=== PATIENT | female | born 1995 | race Caucasian/White ===

== ENCOUNTER 2017-02-15 00:35 | Emergency (ER) | payer OTHER ==
[2017-02-15 00:43] VITALS: BP 150/81; PULSE 52; RESP 16; TEMP 97.6
[2017-02-15] MEDS ORDERED: CHLORPHEN-HYDROcod 8-10mg/5ml 5 ML ORAL.SYRG PO STA (00:55)
--- NOTE | 2017-02-15 01:15 | XR ---
EXAMINATION TYPE: XR chest 2V DATE OF EXAM: 02/15/2017 COMPARISON: NONE HISTORY: Cough and chest pain TECHNIQUE: Frontal and lateral views of the chest are obtained. FINDINGS: Heart and mediastinum are normal. Lungs are clear. Diaphragm is normal. Bony thorax appear s normal. IMPRESSION: Normal chest
--- NOTE | 2017-02-15 01:30 | ED ---
URI HPI - General Chief Complaint: Upper Respiratory Infection Stated Complaint: Cough/Diarrhea/Congestion Time Seen by Provider: 02/15/17 00:44 Source: patient, RN notes reviewed Mode of arrival: ambulatory Limitations: no limitations - History of Present Illness Initial Comments: This a 21-year-old female presents emergency Department chief complaint of pharyngitis sore throat congestion cough. Patient's primary symptoms or cough at this time. She states that she's had on-and-off symptoms for last month and will months she was feeling better but recently started having the symptoms she states that she's been febrile in last 2 days. She is concerned about possible influenza. Patient states her cough is dry and nonproductive. Patient states that she's had family members diagnosed with acute bronchitis. Patient is a nonsmoker has no history of asthma. Patient denies any vomiting she does have some intermittent nausea and heartburn symptoms she states she did not particularly for heartburn. She also states that she's had couple episodes of diarrhea denies any current abdominal pain no rashes. Denies any chance . - Related Data Home Medications Medication Instructions Recorded Confirmed Levothyroxine Sodium [Synthroid] 100 mcg PO DAILY 08/10/15 08/10/15 Polyethylene Glycol 3350 [Miralax] 17 gm PO DAILY PRN 08/10/15 08/10/15 Previous Rx's Medication Instructions Recorded Doxycycline [Vibramycin] 100 mg PO Q12HR 14 Days capsule 08/10/15 Omeprazole 40 mg PO DAILY #14 capsule. 02/15/17 Promethaz-Cod 6.25-10 mg/5 ml 5 ml PO Q6HR PRN #120 ml 02/15/17 [Phenergan with Codeine] predniSONE 50 mg PO DAILY #5 tab 02/15/17 Allergies Allergy/AdvReac Type Severity Reaction Status Date / Time azithromycin Allergy Abdominal Verified 02/15/17 00:43 [From Zithromax Z-Rios] Pain Review of Systems ROS Statement: Those systems with pertinent positive or pertinent negative responses have been documented in the HPI. ROS Other: All systems not noted in ROS Statement are negative. Past Medical History Past Medical History: Thyroid Disorder History of Any Multi-Drug Resistant Organisms: None Reported Past Surgical History: No Surgical Hx Reported Past Psychological History: Depression Smoking Status: Never smoker Past Alcohol Use History: None Reported Past Drug Use History: None Reported General Exam Limitations: no limitations General appearance: alert, in no apparent distress Head exam: Present: atraumatic, normocephalic, normal inspection Eye exam: Present: normal appearance, PERRL, EOMI. Absent: scleral icterus, conjunctival injection, periorbital swelling ENT exam: Present: normal exam, normal oropharynx, mucous membranes moist, TM's normal bilaterally, normal external ear exam Neck exam: Present: normal inspection, full ROM. Absent: tenderness, meningismus, lymphadenopathy Respiratory exam: Present: normal lung sounds bilaterally. Absent: respiratory distress, wheezes, rales, rhonchi, stridor Cardiovascular Exam: Present: regular rate, normal rhythm, normal heart sounds. Absent: systolic murmur, diastolic murmur, rubs, gallop, clicks Skin exam: Present: warm, dry, intact, normal color. Absent: rash Course Vital Signs 02/15/17 00:39 Temperature 97.6 F Pulse Rate 52 L Respiratory 16 Rate Blood Pressure 150/81 O2 Sat by Pulse 98 Oximetry Medical Decision Making - Medical Decision Making 21-year-old female presents emergency Department chief complaint cough congestion worse moist. Patient does have acute bronchitis chest x-ray shows no evidence of pneumonia. Patient be prescribed steroids. Patient given cough syrup go home with. We discussed possibilities of her GERD causing a cough and laryngitis she'll be started on omeprazole. Patient will follow-up with PCP for recheck and return parameters were discussed. - Lab Data Lab Results 02/15/17 Range/Units 01:01 Influenza Type A RNA Not Detected (Not Detectd) Influenza Type B (PCR) Not Detected (Not Detectd) Disposition Clinical Impression: Acute bronchitis, Laryngitis, GERD (gastroesophageal reflux disease) Disposition: HOME SELF-CARE Condition: Stable Instructions: Acute Bronchitis (ED) Additional Instructions: Please return to the Emergency Department if symptoms worsen or any other concerns. Prescriptions: Omeprazole 40 mg PO DAILY #14 capsule. predniSONE 50 mg PO DAILY #5 tab Promethaz-Cod 6.25-10 mg/5 ml [Phenergan with Codeine] 5 ml PO Q6HR PRN #120 ml PRN Reason: Cough Referrals: Mary Galeana MD [Primary Care Provider] - 1-2 days Time of Disposition: 01:29
== END 2017-02-15 01:50 | disposition home or self-care (01) ==
LOC: EC 00:35
DX: J20.9 Acute bronchitis, unspecified (principal); J04.0 Acute laryngitis; K21.9 Gastro-esophageal reflux disease without esophagitis; E07.9 Disorder of thyroid, unspecified; Z79.899 Other long term (current) drug therapy; Z88.1 Allergy status to other antibiotic agents
CPT/HCPCS: 71046; 87502; 99284

== ENCOUNTER 2018-06-15 22:26 | Emergency (ER) | payer OTHER ==
[2018-06-15 22:49] VITALS: BP 114/83; PULSE 78; TEMP 98
[2018-06-15 23:32] LABS: Amorphous Sediment,Urine Rare /hpf; Appearance,Urine Clear (Clear); Bacteria,Urine Rare /hpf; Bilirubin,Urine Negative (Negative); Blood,Urine Moderate (Negative); Color,Urine Yellow; Glucose,Urine (UA) Negative (Negative); Ketones,Urine Negative (Negative); Leukocyte Esterase,Urine Negative (Negative); Mucus,Urine Few /hpf; Nitrite,Urine Negative (Negative); PH, Urine 5.5 (5.0-8.0); Protein,Urine Trace (Negative); RBC,Urine 157 /hpf (0-5); Specific Gravity,Urine 1.037 (1.001-1.035); Squamous Epithelial Cell,Urine 1 /hpf (0-4)
--- NOTE | 2018-06-16 01:19 | ED ---
Female Urogenital HPI - General Chief complaint: Vaginal Bleeding Stated complaint: Vaginal bleeding Time Seen by Provider: 06/16/18 00:23 Source: patient Mode of arrival: ambulatory Limitations: no limitations - History of Present Illness Initial comments: Patient is 23-year-old woman who presents with complaint that she is having worsening. Cramping and bleeding. She states that tonight she has had to go through a couple of tampons within the past hour. She states she is passing clots that are coarse eyes. Patient denies fever or chills. No vomiting. No change in urination. MD Complaint: vaginal bleeding, pelvic pain Onset/Timin -: days(s) Location: suprapubic Radiation: non-radiating Severity: moderate Quality: cramping Consistency: constant Improves with: none Worsens with: none Last Menstrual Period: 06/13/18 - Related Data Home Medications Medication Instructions Recorded Confirmed Levothyroxine Sodium [Synthroid] 100 mcg PO DAILY 08/10/15 03/11/17 Polyethylene Glycol 3350 [Miralax] 17 gm PO DAILY PRN 08/10/15 03/11/17 Previous Rx's Medication Instructions Recorded Doxycycline [Vibramycin] 100 mg PO Q12HR 14 Days capsule 08/10/15 Omeprazole 40 mg PO DAILY #14 capsule. 02/15/17 Promethaz-Cod 6.25-10 mg/5 ml 5 ml PO Q6HR PRN #120 ml 02/15/17 [Phenergan with Codeine] predniSONE 50 mg PO DAILY #5 tab 02/15/17 Albuterol Inhaler [Ventolin Hfa 1 - 2 puff INHALATION Q6HR PRN #1 03/11/17 Inhaler] inhaler Levofloxacin [Levaquin] 750 mg PO DAILY 3 Days #5 tab 03/11/17 Promethaz-Cod 6.25-10 mg/5 ml 5 ml PO Q6HR PRN #120 ml 03/11/17 [Phenergan with Codeine] predniSONE 20 mg PO BID #10 tab 03/11/17 Allergies Allergy/AdvReac Type Severity Reaction Status Date / Time azithromycin Allergy Abdominal Verified 06/15/18 22:49 [From Zithromax Z-Rios] Pain thyroid, pork AdvReac Rash/Hives Verified 06/15/18 22:49 [From [place] Thyroid] Review of Systems ROS Statement: Those systems with pertinent positive or pertinent negative responses have been documented in the HPI. ROS Other: All systems not noted in ROS Statement are negative. Constitutional: Denies: fever, chills Respiratory: Denies: cough, dyspnea Cardiovascular: Denies: chest pain, palpitations, edema Gastrointestinal: Reports: abdominal pain. Denies: nausea, vomiting, diarrhea, constipation Genitourinary: Reports: abnormal menses. Denies: discharge Musculoskeletal: Denies: back pain Skin: Denies: rash Neurological: Denies: headache, weakness, numbness Past Medical History Past Medical History: Thyroid Disorder History of Any Multi-Drug Resistant Organisms: None Reported Past Surgical History: No Surgical Hx Reported Past Psychological History: Depression Smoking Status: Never smoker Past Alcohol Use History: None Reported Past Drug Use History: None Reported General Exam Limitations: no limitations General appearance: alert, in no apparent distress Head exam: Present: atraumatic, normocephalic Eye exam: Present: normal appearance. Absent: scleral icterus, conjunctival injection Respiratory exam: Present: normal lung sounds bilaterally. Absent: respiratory distress, wheezes, rales, rhonchi, stridor Cardiovascular Exam: Present: regular rate, normal rhythm, normal heart sounds. Absent: systolic murmur, diastolic murmur, rubs, gallop GI/Abdominal exam: Present: soft. Absent: distended, tenderness, guarding, rebound, rigid, mass External exam: Present: other (Patient declines exam here) Extremities exam: Present: normal inspection, normal capillary refill. Absent: pedal edema Back exam: Present: normal inspection. Absent: CVA tenderness (R), CVA tenderness (L) Neurological exam: Present: alert Course Vital Signs 06/15/18 06/16/18 22:45 01:26 Temperature 98.0 F Pulse Rate 78 Respiratory 18 19 Rate Blood Pressure 114/83 O2 Sat by Pulse 98 Oximetry Medical Decision Making - Medical Decision Making Patient is 23-year-old woman having symptoms of dysmenorrhea. The physical exam is benign. She declines gynecologic exam stating she will follow with her nail setter for this. - Lab Data Lab Results 06/15/18 06/15/18 Range/Units 22:48 22:48 Urine Color Yellow Urine Appearance Clear (Clear) Urine pH 5.5 (5.0-8.0) Ur Specific [place] 1.037 H (1.001-1.035) Urine Protein Trace H (Negative) Urine Glucose (UA) Negative (Negative) Urine Ketones Negative (Negative) Urine Blood Moderate H (Negative) Urine Nitrite Negative (Negative) Urine Bilirubin Negative (Negative) Urine Urobilinogen 2.0 (<2.0) mg/dL Ur Leukocyte Esterase Negative (Negative) Urine RBC 157 H (0-5) /hpf Urine WBC 1 (0-5) /hpf Ur Squamous Epith Cells 1 (0-4) /hpf Amorphous Sediment Rare H (None) /hpf Urine Bacteria Rare H (None) /hpf Urine Mucus Few H (None) /hpf Urine HCG, Qual Not Detected (Not Detectd) Disposition Clinical Impression: Dysmenorrhea Disposition: HOME SELF-CARE Condition: Good Instructions (If sedation given, give patient instructions): Dysmenorrhea (ED) Is patient prescribed a controlled substance at d/c from ED?: No Referrals: Mary Galeana MD [Primary Care Provider] - 1-2 days Rozina Patel DO [Doctor of Osteopathic Medicine] - 1-2 days
[2018-06-16 01:37] VITALS: RESP 19
== END 2018-06-16 01:28 | disposition home or self-care (01) ==
LOC: EC 22:26
DX: N94.6 Dysmenorrhea, unspecified (principal); N93.9 Abnormal uterine and vaginal bleeding, unspecified; E07.9 Disorder of thyroid, unspecified; Z32.02 Encounter for pregnancy test, result negative; Z79.890 Hormone replacement therapy; Z88.1 Allergy status to other antibiotic agents; Z88.8 Allergy status to other drugs, medicaments and biological substances
CPT/HCPCS: 81001; 81025; 99284

== ENCOUNTER → 2018-10-21 | Outpatient (CLI) | payer OTHER ==
--- NOTE | 2018-10-21 14:51 | US ---
EXAMINATION TYPE: US pelvic complete DATE OF EXAM: 10/21/2018 COMPARISON: US 2016 CLINICAL HISTORY: N92.1Excessive and frequent menstruation with irre. Heavy painful periods x 1 year, 0 TECHNIQUE: . Transabdominal sonographic images of the pelvis were acquired. Transvaginal sonographi c images were medically necessary to better assess the following anatomy: ovaries Date of LMP: 10/04/2018 EXAM MEASUREMENTS: Uterus: 9.6 x 4.2 x 5.6 cm Endometrial Stripe: 0.9 cm Right Ovary: 3.6 x 2.5 x 2.3 cm Left Ovary: 2.7 x 1.6 x 2.9 cm 1. Uterus: anteverted, mildly heterogeneous 2. Endometrium: measures wnl for patient's LMP 3. Right Ovary: multiple follicles, 1.8 x 1.0 x 1.5cm simple appearing cyst/dominant follicle. 4. Left Ovary: multiple follicles 5. Bilateral Adnexa: wnl 6. Posterior cul-de-sac: wnl IMPRESSION: Dominant follicle versus small cyst appears simple and likely physiologic within the righ t ovary. Endometrial thickness is within normal limits.
== END | disposition home or self-care (01) ==
LOC: RADUSWWP 13:26
PROVIDERS: ATTEND Family Medicine
DX: N92.1 Excessive and frequent menstruation with irregular cycle (principal)
CPT/HCPCS: 76830; 76856

== ENCOUNTER → 2019-10-21 | Outpatient (CLI) | payer OTHER ==
[2019-10-21 15:46] LABS: Basophils % (A) 1 %; Eosinophils # (A) 0.1 k/uL (0-0.7); Eosinophils % (A) 1 %; HCT 44.4 % (34.0-46.0); HGB 14.4 gm/dL (11.4-16.0); Lymphocytes # (A) 1.9 k/uL (1.0-4.8); Lymphocytes % (A) 20 %; MCH 29.6 pg (25.0-35.0); MCHC 32.5 g/dL (31.0-37.0); MCV 91.1 fL (80.0-100.0); Mean Platelet Volume 7.3; Monocytes # (A) 0.5 k/uL (0-1.0); Monocytes % (A) 5 %; Neutrophils # (A) 6.9 k/uL (1.3-7.7); Neutrophils % (A) 73 %; Platelet Count 294 k/uL (150-450); RBC 4.87 m/uL (3.80-5.40); RDW 12.5 % (11.5-15.5); WBC 9.4 k/uL (3.8-10.6)
[2019-10-21 23:50] LABS: African American GFR (CKD) 117.9 (60.0-200.0); Albumin 4.4 g/dL (3.80-4.90); Albumin/Globulin Ratio 2.2 (1.60-3.17); Anion Gap 8.2 mmol/L (4.00-12.00); BUN/Creat Ratio 12.5 Ratio (12.00-20.00); Calcium 9.4 mg/dL (8.7-10.3); Carbon Dioxide 23.8 mmol/L (21.6-31.8); Non-African American GFR(CKD) 101.8 (60.0-200.0); Potassium 4.3 mmol/L (3.5-5.5); Total Bilirubin 0.4 mg/dL (0.2-1.2); Total Protein 6.4 g/dL (6.2-8.2)
[2019-10-22 07:20] LABS: Gliadin AB IgA, Deaminated NEGATIVE (NEGATIVE); Gliadin AB IgA, Unit <0.2 U/mL; Gliadin AB IgG, Deaminated NEGATIVE (NEGATIVE)
== END | disposition home or self-care (01) ==
LOC: LABWHC1 14:56
PROVIDERS: ATTEND Nurse Practitioner
DX: R19.4 Change in bowel habit (principal)
CPT/HCPCS: 36415; 80053; 83516; 85025

== ENCOUNTER → 2020-04-12 | Outpatient (CLI) | payer OTHER | END | disposition home or self-care (01) | LOC: LABWHC1 14:00 | PROVIDERS: ATTEND Obstetrics & Gynecology | DX: Z34.81 Encounter for supervision of other normal pregnancy, first trimester (principal); Z3A.00 Weeks of gestation of pregnancy not specified | CPT/HCPCS: 36415; 84702 ==

== ENCOUNTER → 2020-04-19 | Outpatient (CLI) | payer OTHER ==
[2020-04-20 00:03] LABS: T4, Free (Free Thyroxine) 1.4 ng/dL (0.80-1.80)
== END | disposition home or self-care (01) ==
LOC: LABWHC1 12:05
PROVIDERS: ATTEND Internal Medicine
DX: E03.9 Hypothyroidism, unspecified (principal)
CPT/HCPCS: 36415; 84439; 84443

== ENCOUNTER 2020-09-02 00:55 | Outpatient (CLI) | payer OTHER ==
[2020-09-02 02:05] VITALS: BP 131/86; PULSE 92; RESP 18; TEMP 98.6
--- NOTE | 2020-09-02 12:07 | P.MSEPDOC ---
Presenting Problems - Arrival Data Date of Arrival on Unit: 09/02/20 Time of Arrival on Unit: 00:55 Mode of Transport: Ambulatory - Complaint OB-Reason for Admission/Chief Complaint: Vaginal Bleeding Medical History - Information : 1 Para: 0 Term: 0 : 0 Abortions: Spontaneous or Elective: 0 Number of Living Children: 0 - Gestational Age Gestational Age by JOSEPHINE (wks/days): 26 Weeks and 1 Days Review of Systems - Review of Systems Constitutional: No problems Breast: No problems ENT: No problems Cardiovascular: No problems Respiratory: No problems Gastrointestinal: No problems Genitourinary: No problems Musculoskeletal: No problems Neurological: No problems Skin: No problems Vital Signs - Temperature Temperature: 98.6 F Temperature Source: Temporal Artery Scan - Pulse Right Pulse Rate: 92 Pulse Assessment Method: Automatic Cuff - Respirations Respiratory Rate: 18 Oxygen Delivery Method: Room Air O2 Sat by Pulse Oximetry: 98 - Blood Pressure Right Arm Blood Pressure: 131/86 Blood Pressure Mean: 101 Blood Pressure Source: Automatic Cuff Medical Screen Scoring - Cervical Exam Dilation (cm): 0 Membranes: Intact - Uterine Contractions Intensity: Absent Resting: Soft to palpation - Assessment - Baby A Baseline FHR: 140 Heart Rate - NICHD Category: Category I (Normal) Physician Notification - Physician Notified Physician Notified Date: 09/02/20 Physician Notified Time: 01:18 Physician: Rozina Patel Order Received: Yes - Notification Comment Comment: RN called Dr. Patel regarding patient's status. Speculum exam performed, no. signs of active bleeding noted, luis area appears to be WNL and no signs of bleeding. Pt. denies any history of hemmoroids. No complaints of contractions. Pt does state that she. has been constipated for 4-5 days and was only able to pass a small amt of stool today. Pt states she was straining pretty hard when trying to have a BM. Per Dr. Patel, RN is to. check cervix. If pt's cervix is closed, she may DC home with her previously scheduled OBGYN. visit. Pt to drink plenty of fluids, eat a high fiber diet, and may take a stool. softener PRN. Maternal Triage Index - Stat/Priority 1 Stat Priority 1: No - Urgent/Priority 2 Urgent Priority 2: No - Prompt/Priority 3 Prompt Priority 3: No - Non-Urgent/Priority 4 Non-Urgent Priority 4: Yes Criteria Met for Priority 4: Spotting when wiping after going to the bathroom. Disposition - Disposition OB Disposition: Discharge to home Discharge Date: 09/02/20 Discharge Time: 01:35 I agree with the RN Medical Screening Exam: Yes Case reviewed; plan agreed upon as documented in EMR&OBIX.: Yes Diagnosis: SPOTTING COMPLICATING , SECOND TRIMESTER Additional Diagnoses: Constipation
== END 2020-09-02 01:35 | disposition home or self-care (01) ==
LOC: FBPOP 00:55
PROVIDERS: ATTEND Obstetrics & Gynecology
DX: O26.852 Spotting complicating pregnancy, second trimester (principal); Z3A.26 26 weeks gestation of pregnancy
CPT/HCPCS: 99213

== ENCOUNTER → 2021-03-02 | Outpatient (CLI) | payer OTHER ==
[2021-03-03 01:22] LABS: T4, Free (Free Thyroxine) 1.6 ng/dL (0.800-1.800)
== END | disposition home or self-care (01) ==
LOC: LABWHC1 13:48
PROVIDERS: ATTEND Internal Medicine
DX: E03.9 Hypothyroidism, unspecified (principal)
CPT/HCPCS: 36415; 84439; 84443

== ENCOUNTER → 2021-03-13 | Outpatient (CLI) | payer OTHER ==
[2021-03-13 11:57] LABS: Glucose 2 Hour 76 mg/dL
== END ==
LOC: LABWHC1 08:27
PROVIDERS: ATTEND Obstetrics & Gynecology
DX: O24.419 Gestational diabetes mellitus in pregnancy, unspecified control (principal); Z3A.00 Weeks of gestation of pregnancy not specified
CPT/HCPCS: 36415; 82951

== ENCOUNTER → 2021-07-03 | Outpatient (CLI) | payer OTHER ==
[2021-07-03 18:19] LABS: T4, Free (Free Thyroxine) 1.24 ng/dL (0.800-1.800)
== END | disposition home or self-care (01) ==
LOC: LABWHC1 13:26
PROVIDERS: ATTEND Internal Medicine
DX: E03.9 Hypothyroidism, unspecified (principal)
CPT/HCPCS: 36415; 84439; 84443

== ENCOUNTER → 2021-08-14 | Outpatient (CLI) | payer OTHER ==
[2021-08-14 23:02] LABS: T4, Free (Free Thyroxine) 1.26 ng/dL (0.800-1.800)
== END | disposition home or self-care (01) ==
LOC: LABWHC1 14:39
PROVIDERS: ATTEND Internal Medicine
DX: E03.9 Hypothyroidism, unspecified (principal)
CPT/HCPCS: 36415; 84439; 84443

== ENCOUNTER → 2021-11-14 | Outpatient (CLI) | payer OTHER ==
[2021-11-14 22:56] LABS: HCT 33.8 % (37.2-46.3); HGB 11.6 g/dL (12.0-15.0); MCHC 34.3 g/dL (32.0-37.0); MCV 87.3 fL (80.0-97.0); Mean Platelet Volume 10.4 fL (9.5-12.2); NRBC Per 100 WBC 0 /100 WBCS (0.0-0.0); Platelet Count 264 X 10*3/uL (140-440); RBC 3.87 X 10*6/uL (4.10-5.20); RDW 12.9 % (11.5-14.5); WBC 12.31 X 10*3/uL (4.50-10.00)
[2021-11-14 23:40] LABS: T4, Free (Free Thyroxine) 0.98 ng/dL (0.800-1.800)
[2021-11-15 10:20] LABS: HIV 2 AB Non-Reactive (Non-Reactive); HIV AB P24 Non-Reactive (Non-Reactive); HIV P24 AG Non-Reactive (Non-Reactive)
== END | disposition home or self-care (01) ==
LOC: LABWHC1 15:20
PROVIDERS: ATTEND Internal Medicine
DX: Z34.82 Encounter for supervision of other normal pregnancy, second trimester (principal); E03.9 Hypothyroidism, unspecified
CPT/HCPCS: 36415; 84439; 84443; 85027; 86780; 86850; 87340; 87390

== ENCOUNTER 2022-01-01 14:59 | Outpatient (CLI) | payer OTHER ==
--- NOTE | 2022-01-01 15:43 | US ---
EXAMINATION TYPE: US OB limited DATE OF EXAM: 01/01/2022 COMPARISON: NONE CLINICAL HISTORY: 26-year-old female ELMER due to variable decelerations. EXAM PERFORMED: Transabdominal (TA) FINDINGS: GESTATIONAL AGE / DATING Physician Established: (35 weeks/0 days) EDC: 02/05/2022 No growth performed on today?s study per ordering physician SURVEY ELMER: 10.1 cm, Normal HEART RATE: 150 bpm RHYTHM: Normal IMPRESSION: ELMER normal to low normal at 10.1 cm.
[2022-01-01 16:55] VITALS: BP 127/67; PULSE 68; RESP 16; TEMP 97
== END 2022-01-01 16:40 | disposition home or self-care (01) ==
LOC: FBPOP 14:59
PROVIDERS: ATTEND Obstetrics & Gynecology
DX: O26.893 Other specified pregnancy related conditions, third trimester (principal); Z3A.35 35 weeks gestation of pregnancy; Z88.1 Allergy status to other antibiotic agents; Z88.8 Allergy status to other drugs, medicaments and biological substances
CPT/HCPCS: 59025; 76815; G0463; 99213

== ENCOUNTER 2022-01-25 05:57 | Inpatient (IN) | payer OTHER ==
[2022-01-25] MEDS ORDERED: TERBUTALINE 1 MG/ML VIAL SQ PRN (07:23)
[2022-01-25] MEDS ORDERED: LIDOCAINE 0.5% (PF) 5 MG/ML (50 ML SDV) SQ PRN (07:23)
[2022-01-25] MEDS ORDERED: OXYTOCIN 30 UNITS/500 ML NS 30 UNIT in SALINE 1 500ML.BAG IV SCH ×2 (07:30→12:15)
[2022-01-25] MEDS ORDERED: LACTATED RINGERS 1,000 ML IV SCH ×2 (07:30)
[2022-01-25 07:44] LABS: Basophils # (A) 0.1 k/uL (0-0.2); Basophils % (A) 0 %; Eosinophils % (A) 0 %; HCT 32.3 % (34.0-46.0); HGB 10.7 gm/dL (11.4-16.0); Hypochromasia Slight; Lymphocytes # (A) 2.4 k/uL (1.0-4.8); Lymphocytes % (A) 18 %; MCH 27.9 pg (25.0-35.0); MCHC 33.3 g/dL (31.0-37.0); MCV 83.9 fL (80.0-100.0); Mean Platelet Volume 8.6; Monocytes # (A) 0.8 k/uL (0-1.0); Monocytes % (A) 6 %; Neutrophils # (A) 9.9 k/uL (1.3-7.7); Neutrophils % (A) 74 %; Platelet Count 284 k/uL (150-450); RBC 3.85 m/uL (3.80-5.40); RDW 13.5 % (11.5-15.5); WBC 13.4 k/uL (3.8-10.6)
[2022-01-25 07:51] LABS: Amphetamine Screen,Urine Not Detected (NotDetected); Barbiturate Screen,Urine Not Detected (NotDetected); Benzodiazepines Screen,Urine Not Detected (NotDetected); Cocaine Screen,Urine Not Detected (NotDetected); Methadone Screen, Urine Not Detected (NotDetected); Opiate Screen,Urine Not Detected (NotDetected); Oxycodone Screen, Urine Not Detected (NotDetected); Phencyclidine Screen,Urine Not Detected (NotDetected); Tricyclic Antidepressant,Urine Not Detected (NotDetected); Urn Cannabinoid Scrn Detected (NotDetected)
--- NOTE | 2022-01-25 08:04 | P.HPOB ---
History of Present Illness H&P Date: 01/25/22 Chief Complaint: Medical Induction of Labor for IUGR Ms. Newman is a 26 year old at 38 weeks, 3 days with EDC of 02/05/2022 who presents to L&D for medical induction of labor for IUGR 7%ile. Throughout surveillance, umcilical cord copplers have been within normal limits. Obstetric history is significant for 1 full term delivery at 39 weeks complicated by GDMA1. Laboratory workup showed GBS negative, HIV non-reactive, 1 hr GTT 119, blood type O positive, rubella immune, RPR non-reactive, HBsAg negative. Past Medical History Past Medical History: Thyroid Disorder History of Any Multi-Drug Resistant Organisms: None Reported Past Surgical History: No Surgical Hx Reported Additional Past Surgical History / Comment(s): wisdom teeth extracted Past Anesthesia/Blood Transfusion Reactions: No Reported Reaction Past Psychological History: Depression Smoking Status: Never smoker Past Alcohol Use History: None Reported Past Drug Use History: None Reported - Past Family History Mother History Unknown: Yes Medications and Allergies Home Medications Medication Instructions Recorded Confirmed Type Levothyroxine Sodium 1 tab PO DAILY 09/02/20 01/25/22 History Pnv No.95/Ferrous Fum/Folic AC 1 tab PO DAILY 09/02/20 01/25/22 History [ Multivitamin Tablet] Omeprazole [PriLOSEC] 1 tab PO DAILY 01/01/22 01/25/22 History Allergies Allergy/AdvReac Type Severity Reaction Status Date / Time azithromycin Allergy Abdominal Verified 01/25/22 07:22 [From Zithromax Z-Rios] Pain thyroid, pork AdvReac Rash/Hives Verified 01/25/22 07:22 [From [place] Thyroid] Exam Vital Signs Temp Pulse Resp BP Pulse Ox 01/25/22 07:21 97.9 F 69 16 121/71 99 Intake and Output 01/24/22 01/25/22 01/25/22 22:59 06:59 14:59 Other: Weight 104.326 kg Focused exam is performed. Pleasant, healthy-appearing in no apparent distress. Cervical exam shows 3-4 cm dilation, 70% effacement, and -3 station. AROM is undertaken for scant clear fluid. Results Result Diagrams: 01/25/22 06:30 Abnormal Lab Results - Last 24 Hours (Table) 01/25/22 01/25/22 Range/Units 06:30 06:30 WBC 13.4 H (3.8-10.6) k/uL Hgb 10.7 L (11.4-16.0) gm/dL Hct 32.3 L (34.0-46.0) % Neutrophils # 9.9 H (1.3-7.7) k/uL U Marijuana (THC) Screen Detected H (NotDetected) Assessment and Plan Assessment: 26 y/o at 38w3d presenting for mIOL for IUGR 7%ile with normal cord dopplers. Plan: - AROM at 745 for scant clear fluid. Oxytocing per protocol. NPO, mIVF. Epidural prn. Continuous EFM. Time with Patient: Greater than 30
[2022-01-25] MEDS ORDERED: diphenhydrAMINE 50 MG CAP PO PRN (12:14)
[2022-01-25] MEDS ORDERED: BENZOCAINE/MENTHOL SPRAY 1 GM/SPRAY AEROSOL TOPICAL PRN (12:14)
[2022-01-25] MEDS ORDERED: SIMETHICONE 80 MG CHEWABLE PO PRN (12:14)
[2022-01-25] MEDS ORDERED: diphenhydrAMINE 50 MG/ML 1 ML VIAL IVP PRN ×2 (12:14)
[2022-01-25] MEDS ORDERED: ACETAMINOPHEN TAB 325 MG TAB PO PRN (12:14)
[2022-01-25] MEDS ORDERED: LANOLIN CREAM 5 GM TUBE TOPICAL PRN (12:14)
[2022-01-25] MEDS ORDERED: ZOLPIDEM 5 MG TAB PO PRN (12:14)
[2022-01-25] MEDS ORDERED: HYDROCORTISONE 2.5% RECTAL CREAM 30 GM TUBE RECTAL PRN (12:14)
[2022-01-25] MEDS ORDERED: diphenhydrAMINE 25 MG CAP PO PRN (12:14)
--- NOTE | 2022-01-25 12:14 | P.PROBDLV ---
Vaginal Delivery Note - . Vaginal Delivery Note: PROCEDURE: Normal Vaginal Delivery ATTENDING: Dr. Laurence Pugh MD ESTIMATED BLOOD LOSS: 300mL FINDINGS: VFI, Apgars 9/9, weight 6#6lbs PROCEDURE: Patient was a 26 y/o at 38w3d who presented to labor and delivery for medical induction of labor for IUGR 7%ile. Patient started at 3-4 cm dilation. AROM was undertaken for clear fluid. Patient progressed through the first stage of labor very quickly with oxytocin per protocol. Patient was complete and pushing. Head delivered without difficulty followed by shoulders and body over intact perineum. Infant placed on maternal abdomen and bulb suctioned. Cord was clamped and cut. Placenta delivered whole with gentle cord traction. Oxytocin was started to facilitate uterine tone. Uterine fundus firm and bleeding minimal upon fundal massage. Perineal inspection revealed small second degree laceration requiring repair with 3-0 Polysorb in the usual fashion. Patient stable .
[2022-01-25] MEDS: IBUPROFEN 600 MG TAB PO PRN ×2 (13:17→22:02)
[2022-01-25] MEDS: SENNOSIDES-DOCUSATE SODIUM 1 EACH TAB PO SCH (20:13)
[2022-01-26] MEDS: IBUPROFEN 600 MG TAB PO PRN ×2 (04:14→12:44)
[2022-01-26 07:27] LABS: Basophils # (A) 0.1 k/uL (0-0.2); Basophils % (A) 1 %; Eosinophils # (A) 0.1 k/uL (0-0.7); Eosinophils % (A) 1 %; HCT 27.9 % (34.0-46.0); HGB 9.4 gm/dL (11.4-16.0); Hypochromasia Slight; Lymphocytes # (A) 3.5 k/uL (1.0-4.8); Lymphocytes % (A) 23 %; MCH 28.3 pg (25.0-35.0); MCHC 33.7 g/dL (31.0-37.0); MCV 83.9 fL (80.0-100.0); Mean Platelet Volume 8.6; Monocytes # (A) 0.8 k/uL (0-1.0); Monocytes % (A) 6 %; Neutrophils # (A) 10.3 k/uL (1.3-7.7); Neutrophils % (A) 68 %; Platelet Count 239 k/uL (150-450); Poikilocytosis Slight; RBC 3.33 m/uL (3.80-5.40); WBC 15.1 k/uL (3.8-10.6)
--- NOTE | 2022-01-26 08:02 | P.PNOBGVD ---
Subjective - Subjective Principal diagnosis: Normal Vaginal Delivery Interval history: The patient is doing well this morning and had no acute events overnight. She has no complaints this morning. She reports moderate lochia, passing flatus, voiding without difficulty, ambulating, and eating/drinking without nausea or vomiting. She is her infant without difficulty. She denies chest pain, shortness of breathing, fevers, or chills overnight. She denies pain or swelling in the legs. Patient reports: Reports appetite normal, Reports voiding normally, Reports pain well controlled, Reports ambulating normally [place]: doing well, nursing well Objective - Latest Vital Signs Latest vital signs: Vital Signs Temp Pulse Resp BP Pulse Ox 01/26/22 04:00 97.9 F 76 16 94/56 97 01/26/22 00:00 97.8 F 83 16 103/65 97 01/25/22 20:00 97.6 F 69 16 101/69 97 01/25/22 14:10 97.8 F 82 16 118/65 01/25/22 13:40 75 18 115/57 01/25/22 13:10 78 16 114/56 01/25/22 12:55 81 16 104/62 01/25/22 12:40 84 16 105/59 01/25/22 12:25 77 16 113/57 01/25/22 12:10 97.8 F 77 16 105/56 Intake and Output 01/25/22 01/26/22 01/26/22 22:59 06:59 14:59 Other: # Voids 1 2 - Exam Extremities: Present: normal Abdomen: Present: normal appearance, soft Uterus: Present: normal, firm - Labs Labs: Abnormal Lab Results - Last 24 Hours (Table) 01/26/22 Range/Units 06:41 WBC 15.1 H (3.8-10.6) k/uL RBC 3.33 L (3.80-5.40) m/uL Hgb 9.4 L (11.4-16.0) gm/dL Hct 27.9 L (34.0-46.0) % Neutrophils # 10.3 H (1.3-7.7) k/uL Assessment and Plan Assessment: 26 y/o now PPD#1 s/p NVD after mIOL for IUGR 7%ile Plan: - Patient meeting all milestones appropriately - female doing well at the bedside, feeing well. Pt does not need breastpump prescription because she has two already. Dispo: Discharge home after 24 hours with tylenol and motrin prn for pain. f/u in the office in 6 weeks. Discussed pelvic rest for 6 weeks and the risks of a short interval including delivery and low weight.
--- NOTE | 2022-01-26 08:10 | P.DS ---
Providers Date of admission: 01/25/22 05:57 Expected date of discharge: 01/26/22 Attending physician: Laurence Pugh MD Primary care physician: Stated None Hospital Course: This is a 26 year old now PPD#1 s/p NVD after mIOL for IUGR 7%ile with normal dopplers. The patient was admitted and found to be already dilated to 3- 4cm. Pitocin was stared and AROM was undertaken for clear fluid. The patient quickly progressed to complete dilation. She pushed well and delivered a healthy female without complications. She met all milestones appropriately and will be discharged home on day number 1 with motrin and tylenol. She will follow up with me in the office in 6 weeks for visit. She will be on pelvic rest for 6 weeks as discussed with the patient. Assessment: 26 y/o now PPD#1 s/p NVD after mIOL for IUGR 7%ile Patient Condition at Discharge: Good Plan - Discharge Summary Discharge Rx Participant: No New Discharge Prescriptions: New Ibuprofen [Motrin] 600 mg PO Q8HR PRN #30 tab PRN Reason: pain mild Acetaminophen Tab [Tylenol] 650 mg PO Q6H PRN #30 tab PRN Reason: Mild Pain (Scale 1 To 3) No Action Pnv No.95/Ferrous Fum/Folic AC [ Multivitamin Tablet] 1 tab PO DAILY Levothyroxine Sodium 1 tab PO DAILY Omeprazole [PriLOSEC] 1 tab PO DAILY Discharge Medication List Levothyroxine Sodium 1 tab PO DAILY 09/02/20 [History] Pnv No.95/Ferrous Fum/Folic AC [ Multivitamin Tablet] 1 tab PO DAILY 09/02/20 [History] Omeprazole [PriLOSEC] 1 tab PO DAILY 01/01/22 [History] Acetaminophen Tab [Tylenol] 650 mg PO Q6H PRN #30 tab 01/26/22 [Rx] Ibuprofen [Motrin] 600 mg PO Q8HR PRN #30 tab 01/26/22 [Rx] Follow up Appointment(s)/Referral(s): Laurence Pugh MD [STAFF PHYSICIAN] - 6 Weeks Patient Instructions/Handouts: Depression (DC), Your Baby (DC), Expression, Collection and Storage of Breast Milk (DC), and Nipple Soreness (DC), How to Increase Your Milk Supply (DC), How to Tell if Your Baby is Getting Enough Breast Milk (DC), Bleeding (DC), Vaginal Delivery (DC) Activity/Diet/Wound Care/Special Instructions: Activity as tolerated. Pelvic rest for 6 weeks. Discharge Disposition: Left Against Medical Advice
[2022-01-26] MEDS: SENNOSIDES-DOCUSATE SODIUM 1 EACH TAB PO SCH (08:40)
[2022-01-26 12:43] VITALS: BP 108/67; PULSE 65; RESP 14; TEMP 97.3
--- NOTE | 2022-01-29 13:57 | CDI ---
Documentation Clarification Form Date: 01/29/2022 01:44:00 PM From: Radha Rae Phone: Admit Date: 01/25/2022 05:57:00 AM Patient Name: Stephanie Newman Visit Number: [id number] Discharge Date: 01/26/2022 01:45:00 PM ATTENTION: The Clinical Documentation Specialists (CDI) and [facility] Coding Staff appreciate your assistance in clarifying documentation. Please respond to the clarification below the line at the bottom and electronically sign. The CDI & [facility] Coding staff will review the response and follow-up if needed. Please note: Queries are made part of the Legal Health Record. If you have any questions, please contact the author of this message via ITS. Dr. Laurence Pugh Your patient has a positive THC laboratory finding 01/25/2022. Based on this information and the findings below, is there an additional diagnosis that is clinically appropriate for this patient? Patient history/risk factors: 38 weeks , medical induction of labor for IUGR 7%ile, depression Clinical Indicators: IUGR, positive THC drug screen IOL at 38 weeks Is there an additional diagnosis that is clinically appropriate for this patient? [ ] Cannabis Abuse in childbirth [ ] Cannabis Dependence in childbirth [ ] Cannabis Use in childbirth [ X] Positive drug screen not clinically significant [ ] Other, please specify [ ] Unable to determine MTDD
== END 2022-01-26 13:45 | disposition left against medical advice (07) | DRG 807 ==
LOC: 4FBP 05:57
PROVIDERS: ADMIT Obstetrics & Gynecology; ATTEND Obstetrics & Gynecology
PROC: 0KQM0ZZ Repair Perineum Muscle, Open Approach (ICD-10-PCS; principal; 2022-01-25)
PROC: 3E033VJ Introduction of Other Hormone into Peripheral Vein, Percutaneous Approach (ICD-10-PCS; principal; 2022-01-25)
PROC: 10E0XZZ Delivery of Products of Conception, External Approach (ICD-10-PCS; principal; 2022-01-25)
PROC: 10907ZC Drainage of Amniotic Fluid, Therapeutic from Products of Conception, Via Natural or Artificial Opening (ICD-10-PCS; principal; 2022-01-25)
DX: O36.5930 Maternal care for other known or suspected poor fetal growth, third trimester, not applicable or unspecified (principal); O62.3 Precipitate labor; O70.1 Second degree perineal laceration during delivery; O99.344 Other mental disorders complicating childbirth; F32.A Depression, unspecified; O99.284 Endocrine, nutritional and metabolic diseases complicating childbirth; E07.9 Disorder of thyroid, unspecified; Z86.32 Personal history of gestational diabetes; Z79.899 Other long term (current) drug therapy; Z79.890 Hormone replacement therapy; Z88.1 Allergy status to other antibiotic agents; Z3A.38 38 weeks gestation of pregnancy; Z37.0 Single live birth
CPT/HCPCS: 80306; 85025; 86850; 86900; 86901

== ENCOUNTER → 2022-12-16 | Outpatient (CLI) | payer OTHER ==
[2022-12-17 02:45] LABS: BUN/Creat Ratio 15.43 Ratio (12.00-20.00); Blood Urea Nitrogen 10.8 mg/dL (9.0-27.0); Calcium 9.4 mg/dL (8.7-10.3); Chloride 105 mmol/L (96-109); Glucose 86 mg/dL (70-110); Sodium 142 mmol/L (135-145); T4, Free (Free Thyroxine) 1.27 ng/dL (0.80-1.80)
== END | disposition home or self-care (01) ==
LOC: LABWHC1 15:51
PROVIDERS: ATTEND Internal Medicine
DX: E03.9 Hypothyroidism, unspecified (principal); E55.9 Vitamin D deficiency, unspecified
CPT/HCPCS: 36415; 80048; 82306; 84439; 84443

== ENCOUNTER → 2024-01-15 | Outpatient (CLI) | payer BC, OTHER ==
--- NOTE | 2024-01-15 08:44 | USB ---
Reason for Exam: Additional evaluation requested from abnormal screening. Patient History: Menarche at age 9. First Full-Term at age 25. Technique: Method: Targeted. Doppler: Color. Patient Position: Supine. Findings: The upper inner quadrant of the left breast, the axilla of the left breast and the retroareolar of the left breast were scanned. Ultrasound left breast 11:00 position including scanning of the subareolar region and axilla. At the patient's palpable site, mammographic correlate, there is a 2.2 x 2.3 x 1.5 cm oval hypoechoic solid mass with some marginal vascularity. Posterior through transmission. Tissue sampling recommended. Fibroadenoma is in the differential. No other solid or cystic lesion or axillary lymphadenopathy. Overall Assessment: Suspicious, BI-RAD 4 Management: Ultrasound Core Biopsy of the left breast. Results were given to the patient verbally at the time of exam. [facility], , 01/15/2024 7:50 AM. Electronically signed and approved by: Stacia Olvera M.D. Radiologist
--- NOTE | 2024-01-15 10:01 | MM ---
Reason for Exam: Clinical finding. Baseline mammogram. Indicated Problems: Lump or thickening of the left side for 4 Month(s). Patient History: Menarche at age 9. First Full-Term at age 25. Last menstrual period: 12/25/2023 Prior Study Comparison: Patient's first Mammogram. No prior studies available for comparison. Tissue Density: The breasts are heterogeneously dense, which may obscure small masses. Findings: Analyzed By CAD. There is a 2.0 cm oval high density mass that appears circumscribed on 3-D images at the central upper inner quadrant left breast corresponding to the patient's palpable site. Other scattered areas of asymmetric density show no persisting abnormality on 3-D images. No suspicious microcalcification or other discrete abnormality is seen. Overall Assessment: Incomplete: need additional imaging evaluation, BI-RAD 0 Management: Diagnostic Breast Ultrasound of the left breast. [facility], , 01/15/2024 8:51 AM. Electronically signed and approved by: Stacia Olvera M.D. Radiologist
== END | disposition home or self-care (01) ==
LOC: RADMAMWWP 07:09
PROVIDERS: ATTEND Family Medicine
DX: N63.22 Unspecified lump in the left breast, upper inner quadrant (principal); R92.333 Mammographic heterogeneous density, bilateral breasts
CPT/HCPCS: 77062; 77066

== ENCOUNTER → 2024-02-05 | Day surgery (SDC) | payer BC ==
--- NOTE | 2024-02-13 14:29 | MM ---
Reason for Exam: Post Procedure Mammogram. Last screening mammogram was performed less than 1 month ago. Patient History: Menarche at age 9. First Full-Term at age 25. Prior Study Comparison: 01/15/2024 Bilateral MG 3D diag mammo w/cad [facility], [facility]. 01/15/2024 Left US breast limited , [facility]. Tissue Density: Left: The breasts are heterogeneously dense, which may obscure small masses. Pathology Description: Location: 11 o'clock. Marker Left Behind. Needle Type: Mammotome Cores: 7 Gauge: 13 The procedure of ultrasound guided core biopsy was explained to the patient. Benefits, alternatives, and risks were discussed. An informed consent was then obtained. The patient was placed in supine positioning for imaging and for the procedure. The overlying skin was prepped and draped in usual sterile fashion. Lidocaine buffered with bicarbonate was used as anesthetic into the skin and subcutaneous tissue up to area of concern in the 11:00 left breast. Under ultrasound guidance, a 13-gauge vacuum assisted Mammotome Elite biopsy gun device was used to obtain 7 core samples. Following this, a HydroMark coil clip was left in lesion. The patient tolerated the procedure well without any immediate complication. The patient was kept in the radiology department for short stay after the procedure and then discharged home in stable condition. Postprocedure mammogram: The patient was transferred to mammography for physician ordered post procedure mammogram for clip placement verification. Post procedure mammogram demonstrates appropriate placement of clip, located within the mammographic mass. IMPRESSION: Successful, uncomplicated ultrasound guided core biopsy of area of 11:00 left breast mass, possible fibroadenoma. If there are benign results, but the area remains symptomatic, surgical excision can then be considered. Full pathology results to follow. [facility], , 02/05/2024 2:10 PM. Pathology Results: Result: Benign, Fibroadenoma. Pathology and radiology were reviewed. Findings are concordant. LEFT BREAST, 11:00, ULTRASOUND GUIDED NEEDLE CORE BIOPSY: Fibroadenoma. See note. Notes [facility] immunostain performed on block A1 and evaluated with an appropriate positive control highlights a myoepithelial layer surrounding ductal and tubular structures within the stroma. The results support the diagnosis of fibroadenoma. Overall Assessment: Benign Assessment: MG diagnostic mammo LT wo CAD. - Left: Benign, BI-RAD 2. Management: Diagnostic Mammogram of the left breast in 6 months. Electronically signed and approved by: Stacia Olvera M.D. Radiologist
== END ==
LOC: RADUSWWP 12:30
PROVIDERS: ATTEND Family Medicine
DX: D24.2 Benign neoplasm of left breast (principal)
CPT/HCPCS: 88305; 88342; 77065; 19083; A4648